=== PATIENT | male | born 1995 | race Caucasian/White ===

== ENCOUNTER 2023-09-17 09:51 | Emergency (ER) | payer BC, SELFPAY ==
[2023-09-17 09:57] VITALS: BP 136/77
--- NOTE | 2023-09-17 10:47 | ED.GENMED ---
History of Present Illness
General
Chief Complaint: Fatigue
Source: patient
Exam Limitations: none
Time Seen by Provider: 09/17/23 10:35
Nursing documentation reviewed up to this point in time: agreed with
Travel History
Have you had any contact with someone who has COVID-19?: No
Do you have any symptoms of coronavirus? Fever > 100 degrees, chills, cough, shortness of breath, sore throat, loss of taste or smell, muscle aches, or headache?: No
History of Present Illness
History of Present Illness:
Patient presents to ED secondary to intermittent nausea sensation, along with decreased appetite over the past 1 month. Recently, patient has also noted intermittent fever chills sensation as well as upper abdominal discomfort, and intermittent
posterior headache. Denies chest pain. Denies shortness of breath. Denies coughing. Denies vomiting or diarrhea. Denies rash. Patient does report removing 'medium sized tick' off his left thigh 1 week ago. Denies loss of sensation or
weakness. Denies dizziness. Denies blurred vision. Denies sick contact. Denies recent travel. Denies recent change in medications or diet. Denies significant weight loss.
Past History
Past History
ED Past Medical History: Other (Noncontributory)
ED Past Surgical History: Other (Noncontributory)
Social History
Tobacco: Non-smoker
Personal: Single
Living: with family
Employment: Student
Review of Systems
Review of Systems
Allergies reviewed?: Yes
All Other Systems: ROS reviewed and negative except as documented in HPI and ROS
Constitutional: Reports fever; Denies fatigue or chills
EENT: Reports no symptoms
Respiratory: Reports no symptoms; Denies cough
Cardiac: Reports no symptoms
ABD/GI: Reports abdominal pain and nausea; Denies vomiting or diarrhea
Musculoskeletal: Reports no symptoms
Skin: Reports no symptoms
Neurological: Reports no symptoms
Phy Exam
Physical Exam
Physical Exam:
Physical Exam
General: mild distress, not acutely ill. afebrile
Head: nc/at. eomi
Neck: supple. no meningeal signs.
Heart: s1/s2 regular rate and rhythm, no murmur. equal radial pulses.
Lungs: no acute respiratory distress. clear bilaterally
Abdomen: normal bowel sounds. not tender.
Neuro: alert and oriented. no focal neurological deficits
Skin: no rash
Psychiatric: well kept. interactive and cooperative
Extremities: no edema. no calf tenderness.
Course
Orders/Labs/Results
Orders:
Orders
09/17/23 10:44
0.9% Sodium Chloride 1000 ml [Nss] 1,000 ml IV BOLUS
09/17/23 10:58
Complete Blood Count/With Diff Urgent
Comprehensive Metabolic Panel Urgent
Anjel-Neumann Virus Ab Panel I [S] Urgent
Hepatitis A Antibody, Total Urgent
Comment: ADD ON
Hepatitis B Surface Antibody Urgent
Comment: ADD ON
Hepatitis B Surface Antigen Urgent
Comment: ADD ON
Hepatitis C Antibody Urgent
Comment: ADD ON
Lyme Progressive Urgent
Magnesium Urgent
Manual Differential Urgent
Monotest Urgent
TSH Urgent
09/17/23 12:06
Add On- LAB Urgent
Tests Added?: Anjel Neumann Virus (VCA IgM Ab & Ab Panel)
09/17/23 12:07
Urinalysis Reflex To Culture Urgent
Date Specimen was Collected: 09/17/23
Time Specimen was Collected: 12:02
09/17/23 12:32
Add On- LAB Urgent
Tests Added?: Hepatitis panel
Abnormal Lab Results
09/17/23 09/17/23
10:58 12:07
MCV 79.8 L fL
(80.0-94.0)
Band Neutrophils 6 H %
(0-3)
Glucose 108 H mg/dl
(70-99)
AST 398 H U/L
(17-59)
ALT 568 H* U/L
(0-50)
Alkaline Phosphatase 180 H U/L
(38-126)
Urine Urobilinogen 2+ A
(Neg - 1+)
EBV Capsid Ag IgG Ab 27.0 H U/mL
(0.0-21.9)
EBV Capsid Ag IgM Ab >160.0 H U/mL
(0.0-43.9)
EBV Early Ag Ab Diffuse 15.3 H U/mL
(0.0-10.9)
09/17/23 10:58
09/17/23 10:58
Vital Signs
Initial and Last Documented VS:
Initial Vital Signs
Temp Pulse BP Pulse Ox
98.1 F 94 136/77 98
09/17/23 09:57 09/17/23 09:57 09/17/23 09:57 09/17/23 09:57
Last Documented Vital Signs
Temp Pulse BP Pulse Ox
98.1 F 94 136/77 98
09/17/23 09:57 09/17/23 09:57 09/17/23 09:57 09/17/23 10:36
MDM/Problems Addressed
MDM/Problems Addressed:
Discussed with () - willl make an arrangement for urgent outpatient f/u with GI office. Pt otherwise is afebrile, hemodynamically stable, and nontoxic-appearing, at time of discharge.
EVB pending. Hepatitis panel pending.
*Critical Care Note
Total Time (30-74mins, 75-104mins- exclusive of procedures): Not Applicable
Update Note
Update Note:
Pt contacted by GI office for an appt this week for further evaluation and treatment
ED Attending Note
-
Portions of this chart may have been created with voice recognition software.� Occasional wrong word or��sound alike� substitutions may have occurred due to the inherent limitations of voice recognition software.
Discharge Plan
Departure
Patient Disposition: Home (Routine Discharge)
Date of Disposition: 09/17/23
Time of Disposition: 13:47
Patient with high blood pressure during this ER visit?: Yes
Discharge Problem:
Fatigue, Abnormal LFTs (liver function tests)
Instructions: Fatigue (DC)
Prescriptions:
No Action
No Current Medications
0
Referrals:
Harvinder Davis MD [Family Provider] -
Martha Brewster MD [Active] -
Activity Restrictions/Additional Instructions:
As discussed, please follow-up with referred GI physician for further evaluation and treatment. You will receive a phone call from GI office with an appointment date.
Interventions
Interventions:
*Risk Screen - Suicide Last Done: 09/17/23 10:36
*General Assessment Last Done: 09/17/23 10:36
*Neglect/Abuse Screening Last Done: 09/17/23 10:36
ED- Fall Risk Assessment Last Done: 09/17/23 10:36
*ED COVID-19 Vaccine History Last Done: 09/17/23 10:00
*Nursing Disposition Last Done: 09/17/23 13:59
Discharge Date and Time
Discharge Date/Time: 09/17/23 14:00
Print Language: UKRAINIAN
[2023-09-17] MEDS: NSS 1000 IV (11:01)
[2023-09-17 11:12] LABS: Hematocrit 39.9 % (39.0-52.0); Hemoglobin 14.4 g/dL (13.0-18.0); Mean Corp Hgb Conc. 36.1 g/dL (33.0-37.0); Mean Corpuscular Hgb 28.8 pg (27.0-31.0); Mean Corpuscular Volume 79.8 fL (80.0-94.0); Mean Platelet Volume 9.1 fL (7.4-10.4); Platelet Count 130 10^3/uL (130-400); Red Cell Dist. Width 12.5 % (11.5-14.5); White Blood Cell Count 6.3 10^3/uL (4.8-10.8)
[2023-09-17 11:37] LABS: ALT (SGPT) 568 U/L (0-50); AST (SGOT) 398 U/L (17-59); Albumin 4.3 g/dl (3.5-5.0); Alkaline Phosphatase 180 U/L (38-126); Blood Urea Nitrogen 14 mg/dl (9-20); Calcium 9.3 mg/dl (8.4-10.2); Carbon Dioxide 28 mmol/L (22-30); Chloride 103 mmol/L (98-107); Glucose 108 mg/dl (70-99); Magnesium 2.1 mg/dl (1.6-2.3); Potassium 4.1 mmol/L (3.5-5.1); Sodium 136 mmol/L (135-145); Total Bilirubin 1.3 mg/dl (0.2-1.3); Total Protein 6.9 g/dl (6.3-8.2); eGFR > 60.00
[2023-09-17 11:39] LABS: Monotest Negative (Negative)
[2023-09-17 12:02] LABS: TSH 1.07 uIU/ml (0.47-4.68)
[2023-09-17 12:18] LABS: Urine Albumin Negative (Neg - Trace); Urine Bilirubin Negative (Negative); Urine Character Clear (Clear); Urine Color Yellow; Urine Glucose Negative (Negative); Urine Ketone Negative (Negative); Urine Leukocyte Negative (Negative); Urine Nitrite Negative (Negative); Urine Occult Blood Negative (Negative); Urine Urobilinogen 2+ (Neg - 1+)
[2023-09-17 12:51] LABS: Atypical Lymphocytes 3 %; Band Neutrophils 6 % (0-3); Eosinophils 1 % (0-6); Lymphocytes 40 % (20-51); Monocytes 7 % (2-9); Normal RBC Morphology Yes; Platelets Checked Yes; Segmented Neutrophils 43 % (42-75); Total Cells Counted 100
[2023-09-17 16:26] LABS: Lyme Antibody Screen, EIA Negative (Negative)
[2023-09-17 19:02] LABS: Hepatitis B Surface Antigen Negative (Negative)
[2023-09-17 19:19] LABS: Hepatitis B Surface Antibody Negative; Hepatitis C Antibody Negative (Negative)
[2023-09-17 19:34] LABS: Hepatitis A Antibody, Total Positive (Negative)
[2023-09-18 12:03] LABS: EBV-EA (D) Ab IgG 15.3 U/mL (0.0-10.9); EBV-NA IgG <3.0 U/mL (0.0-21.9); EBV-VCA IgM Antibodies >160.0 U/mL (0.0-43.9)
== END 2023-09-17 14:00 | disposition home or self-care (01) ==
LOC: EMR 09:51
PROVIDERS: EMERGENCY PHYSICIAN Emergency Medicine; FAMILY PHYSICIAN Family Medicine
DX: R53.83 Other fatigue (principal); R79.89 Other specified abnormal findings of blood chemistry; R03.0 Elevated blood-pressure reading, without diagnosis of hypertension
CPT/HCPCS: 99284; 96360; 80053; 81003; 83735; 84443; 85025; 86308; 86618; 86663; 86664; 86665; 86706; 86708; 86803; 87340